=== PATIENT | male | born 1995 | race Caucasian/White ===

== ENCOUNTER 2024-09-20 08:50 | Inpatient (IN) | payer OTHER ==
[2024-09-20] MEDS ORDERED: ACETAMINOPHEN INJECTION 100 ML ONE ×2 (09:52→17:26)
[2024-09-20] MEDS ORDERED: ONDANSETRON 4 MG/2 ML VIAL ONE ×2 (09:53→16:41)
[2024-09-20] MEDS ORDERED: FAMOTIDINE 20 MG/50 ML IVPB 20 MG/50 ML MG IVPB ONE (09:53)
[2024-09-20] MEDS: FAMOTIDINE 20 MG/50 ML IVPB 20 MG/50 ML MG IVPB ONE (10:30)
[2024-09-20] MEDS: ACETAMINOPHEN 1000 MG/100 ML BAG IVPB ONE (10:30)
[2024-09-20] MEDS: ONDANSETRON 4 MG/2 ML VIAL IVPUSH ONE (10:30)
[2024-09-20 11:15] LABS: BASO % 0.1 % (0-2.0); EOS % 1.6 % (0-4.5); HEMATOCRIT 43.4 % (35.4-49); LYMPH % 15.9 % (8-40); MCH 29.7 pg (25.7-33.7); MCHC 34.6 g/dl (32.0-35.9); MEAN CELL VOLUME 85.6 fl (80-96); MEAN PLT VOLUME 8.4 fl (7.5-11.1); MONO % 7.7 % (3.8-10.2); NEUT % 74.7 % (42.8-82.8); PLATELET COUNT 100 10^3/uL (134-434); RBC 5.07 M/mm3 (4.00-5.60); WHITE BLOOD COUNT 8.5 K/mm3 (4.0-10.0)
[2024-09-20 11:23] LABS: PH,URINE 7.5 (5.0-8.0); URINE APPEARANCE CLEAR; URINE BILIRUBIN NEGATIVE (NEGATIVE); URINE COLOR YELLOW; URINE GLUCOSE (UA) NEGATIVE (NEGATIVE); URINE KETONE NEGATIVE (NEGATIVE); URINE LEUK ESTERASE NEGATIVE (NEGATIVE); URINE NITRITE NEGATIVE (NEGATIVE); URINE PROTEIN NEGATIVE (NEGATIVE); URINE UROBILINOGEN 0.2 mg/dL (0.2-1.0)
[2024-09-20 12:01] LABS: POTASSIUM 4.3 mmol/L (3.5-5.1)
[2024-09-20 12:04] LABS: ALBUMIN 4.1 g/dl (3.4-5.0); BLOOD UREA NITROGEN 11.4 mg/dL (7-18); CALCIUM 9.3 mg/dL (8.5-10.1)
[2024-09-20 12:09] LABS: BILIRUBIN,TOTAL 0.8 mg/dL (0.2-1); TOT PROT 7.7 g/dl (6.4-8.2)
[2024-09-20] MEDS ORDERED: PIPERACILLIN/TAZOB 3.375 GM 3.375 GM/50 ML BAG IVPB ONE (13:35)
[2024-09-20] MEDS: PIPERACILLIN/TAZOB 3.375 GM 3.375 GM in DEXTROSE 5%-WATER - 50 ML IVPB ONE (14:08)
[2024-09-20] MEDS: LACTATED RINGERS SOLUTION 1000 ML INFUS.BAG IV ONE (14:12)
[2024-09-20] MEDS ORDERED: LACTATED RINGERS SOLUTION 1,000 ML/1,000 ML INFUS.BAG IV SCH (14:30)
[2024-09-20] MEDS ORDERED: BUPIVACAINE HCL/PF 0.25% (2.5MG/ML) 10 ML VIAL ONE (15:26)
[2024-09-20] MEDS ORDERED: ROCURONIUM BROMIDE 50 MG/5 ML SYRINGE ONE ×2 (16:40→17:52)
[2024-09-20] MEDS ORDERED: PROPOFOL 20 ML ONE (16:41)
[2024-09-20] MEDS ORDERED: DEXAMETHASONE SOD PHOSPHATE 4 MG/1 ML VIAL ONE (16:41)
[2024-09-20] MEDS ORDERED: SUGAMMADEX SODIUM 200 MG/2 ML VIAL ONE (16:41)
[2024-09-20] MEDS ORDERED: LIDOCAINE HCL/PF 2% SDV 5ML VIAL ONE (16:41)
[2024-09-20] MEDS ORDERED: MIDAZOLAM HCL 2 MG/2 ML SINGLE DOSE VIAL ONE (16:41)
[2024-09-20] MEDS ORDERED: SEVOFLURANE 250 ML BTL ONE (16:41)
[2024-09-20] MEDS: ceFAZolin SODIUM 1 GM VIAL IVPB ONE (17:06)
[2024-09-20] MEDS ORDERED: ceFAZolin SODIUM 1 GM VIAL ONE (17:12)
[2024-09-20] MEDS ORDERED: KETOROLAC TROMETHAMINE 30 MG/1 ML VIAL ONE (17:14)
[2024-09-20] MEDS: BUPIVACAINE HCL/PF 0.5% (5 MG/ML) 30 ML VIAL IJ ONE (17:26)
[2024-09-20] MEDS ORDERED: ONDANSETRON 4 MG/2 ML VIAL IVPUSH PRN ×2 (18:25→18:32)
[2024-09-20] MEDS ORDERED: oxyCODONE HCL 5 MG TABLET PO PRN ×2 (18:25)
[2024-09-20] MEDS ORDERED: LACTATED RINGERS SOLUTION 1,000 ML IV SCH (18:30)
[2024-09-20] MEDS: LACTATED RINGERS SOLUTION 1,000 ML IV SCH (18:40)
[2024-09-20 20:42] VITALS: BMI 23.5
[2024-09-20] MEDS ORDERED: CEFTRIAXONE 1 G/50 ML PREMIX 50 ML IVPB SCH (21:00)
[2024-09-20] MEDS: oxyCODONE HCL 5 MG TABLET PO PRN (21:40)
[2024-09-21] MEDS: oxyCODONE HCL 5 MG TABLET PO PRN (01:02)
[2024-09-21 09:47] LABS: HEMATOCRIT 39.8 % (35.4-49); HEMOGLOBIN 13.7 GM/dL (11.7-16.9); MCH 29.5 pg (25.7-33.7); MCHC 34.6 g/dl (32.0-35.9); MEAN CELL VOLUME 85.2 fl (80-96); MEAN PLT VOLUME 8.7 fl (7.5-11.1); PLATELET COUNT 92 10^3/uL (134-434); RBC 4.67 M/mm3 (4.00-5.60); WHITE BLOOD COUNT 9.3 K/mm3 (4.0-10.0)
[2024-09-21 10:01] VITALS: BP 113/57; PULSE 77; RESP 18; TEMP 98.6
[2024-09-21 10:02] LABS: POTASSIUM 3.8 mmol/L (3.5-5.1)
[2024-09-21 10:10] LABS: ALBUMIN 3.5 g/dl (3.4-5.0); BLOOD UREA NITROGEN 8.6 mg/dL (7-18); CALCIUM 8.8 mg/dL (8.5-10.1)
[2024-09-21 10:14] LABS: PHOSPHOROUS 3.7 mg/dL (2.5-4.9)
[2024-09-21 10:15] LABS: BILIRUBIN,TOTAL 0.9 mg/dL (0.2-1); TOT PROT 6.6 g/dl (6.4-8.2)
[2024-09-21 10:17] LABS: CREATININE 1.2 mg/dL (0.55-1.3)
== END 2024-09-21 11:44 | disposition home or self-care (01) | DRG 225 ==
LOC: JER 08:50 → JERBED 13:18 → J8W 19:46
PROVIDERS: ADMIT Internal Medicine; ATTEND Nurse Practitioner Acute Care
PROC: 0DTJ4ZZ Resection of Appendix, Percutaneous Endoscopic Approach (ICD-10-PCS; principal; 2024-09-20 14:30)
DX: K35.80 Unspecified acute appendicitis (principal)
CPT/HCPCS: 0241U-QW; 36415; 74177-TC; 80053; 81003; 83690; 83735; 84100; 85025; 85027; 87086; 88304-TC; 94760; 99285-25; J0131; Q9967

== ENCOUNTER 2025-01-14 12:18 | Emergency (ER) | payer OTHER ==
[2025-01-14 12:25] VITALS: BP 116/77; PULSE 70; RESP 18; TEMP 98.2; BMI 23.0
[2025-01-14] MEDS: KETOROLAC TROMETHAMINE 30 MG/1 ML VIAL IM ONE (13:03)
[2025-01-14] MEDS: diazePAM 2 MG TABLET PO ONE (13:04)
[2025-01-14] MEDS: LIDOCAINE 5% TOPICAL PATCH TP ONE (13:05)
[2025-01-14] MEDS ORDERED: LIDOCAINE 4% PATCH TP ONE (13:05)
[2025-01-14] MEDS ORDERED: KETOROLAC TROMETHAMINE 30 MG/1 ML VIAL ONE (13:06)
[2025-01-14] MEDS ORDERED: diazePAM 2 MG TABLET ONE (13:06)
== END 2025-01-14 14:26 | disposition home or self-care (01) ==
LOC: JERFT 12:18
PROC: 3E0233Z Introduction of Anti-inflammatory into Muscle, Percutaneous Approach (ICD-10-PCS; principal; 2025-01-14)
DX: M62.830 Muscle spasm of back (principal); M54.50 Low back pain, unspecified; M54.6 Pain in thoracic spine
CPT/HCPCS: 72070-TC-FY; 72100-TC-FY; 99284-25

== ENCOUNTER 2025-02-03 22:03 | Emergency (ER) | payer OTHER ==
[2025-02-03 22:21] VITALS: BP 144/78; PULSE 72; RESP 18; TEMP 98.6; BMI 23.0
[2025-02-03] MEDS: ARTIFICIAL TEARS OPHTHALMIC DROPS OU ONE (23:54)
[2025-02-03] MEDS ORDERED: ACETAMINOPHEN 325 MG TABLET (FP) ONE (23:56)
[2025-02-03] MEDS: ACETAMINOPHEN 325 MG TABLET (FP) PO ONE (23:59)
[2025-02-04] MEDS: POLYMYXIN B SULFATE/TMP 10 ML OPHTHALMIC SOLUTION OU SCH (00:49)
== END 2025-02-04 02:21 | disposition home or self-care (01) ==
LOC: JER 22:03
DX: R09.89 Other specified symptoms and signs involving the circulatory and respiratory systems (principal); M79.10 Myalgia, unspecified site; J06.9 Acute upper respiratory infection, unspecified; B30.9 Viral conjunctivitis, unspecified
CPT/HCPCS: 0241U-QW; 71046-TC-FY; 99284-25